=== PATIENT | female | born 1985 | race Caucasian/White ===

== ENCOUNTER 2016-09-03 16:13 | Emergency (ER) | payer SELFPAY ==
[~2016-09-03] VITALS: Ht 152.4 cm; Wt 95.1 kg
[~2016-09-03 16:13] MED LIST: HYDR-1530 PO; IBUP-238 PO; LORT5TAB PO; MACR100C PO; ONDA4TAB7 OR; PHEN12.5 PO; PYRI200T4 PO; SULF-154 PO; Z.0.NO CURRENT MEDS
[2016-09-03 16:15] VITALS: BP 130/66; PULSE 88; RESP 18; TEMP 98.9; O2SAT 99
--- NOTE | 2016-09-03 17:27 | PD ---
HPI Chief Complaint: Cold / Flu Symptoms Time Seen by Provider: 17:23 Travel History International Travel<30 days: No Contact w/Intl Traveler<30days: No Traveled to known affect area: No History of Present Illness HPI 30 year-old female presents to the emergency room for evaluation of nonproductive cough, congestion, chills, and sore throat for the past 2.5 days. Tmax at home has been 99. States where she works everyone is sick. She has been taking DayQuil and NyQuil without significant relief in symptoms. She did not get a flu shot this year. Denies chronic medical conditions or to the medications. PFSH Past Medical History Diminished Hearing: No Kidney Stones: Yes Immunizations Current: No Tetanus Vaccination: < 5 Years Influenza Vaccination: Yes (egg free version) ?: Not LMP: 09/01/16 : 1 Para: 0 : 0 Ectopic : Yes Past Surgical History Other Surgery: Yes (HX ECTOPIC PREGNACY 2010) Social History Alcohol Use: No Tobacco Use: Yes (08/22 PPD) Substance Use: No Allergies-Medications (Allergen,Severity, Reaction): Coded Allergies: Egg Allergy (Verified Allergy, Unknown, 09/03/16) Reported Meds & Prescriptions Reported Meds & Active Scripts Active Review of Systems Except as stated in HPI: all other systems reviewed are Neg Physical Exam Narrative GENERAL: Well-nourished, well-developed female in no acute distress. Afebrile. Ambulatory. SKIN: Warm and dry. HEAD: Normocephalic. EYES: No scleral icterus. No injection or drainage. ENT: Mucosa pink and moist. Moderate erythema without exudates. No uvular edema. No uvular, palatal, or tonsillar deviation. Airway patent. Nasal turbinates appear normal without nasal blood, purulent drainage or septal hematoma. EARS: Bilateral pinnae and external canals appear within normal limits. Bilateral tympanic membranes without erythema, dullness or perforation. NECK: Supple, trachea midline. No JVD or lymphadenopathy. CARDIOVASCULAR: Regular rate and rhythm without murmurs, gallops, or rubs. RESPIRATORY: Breath sounds equal bilaterally. No accessory muscle use. No crackles, rales, wheezes, or rhonchi. Data Data Last Documented VS Vital Signs Date Time Temp Pulse Resp B/P Pulse Ox O2 Delivery O2 Flow Rate FiO2 09/03/16 16:15 98.9 88 18 130/[address] [facility] Medical Decision Making Medical Screen Exam Complete: Yes Emergency Medical Condition: Yes Medical Record Reviewed: Yes Differential Diagnosis URI versus bronchitis versus pneumonia unlikely Narrative Course 30-year-old female presents to the emergency room for evaluation of cold and flu symptoms for the past 2.5 days. Vital signs stable. Resting comfortably in bed. Coughing occasionally. Physical exam is reassuring. Mildly erythematous pharynx without exudates or edema. No evidence of bacterial infection in the nose or ears. Lungs sounds clear and equal bilaterally. This is viral upper respiratory infection. Patient told to follow up with the primary care physician and return for worsening symptoms. She understands and agrees to plan. Diagnosis Primary Impression: Upper respiratory infection Qualified Code: J00 - Acute nasopharyngitis Referrals: Primary Care Physician Patient Instructions: General Instructions, Upper Respiratory Infection (ED) Departure Forms: Tests/Procedures, Work Release Enter return to work date: Sep 05, 2016 Additional Instructions: Rest and drink plenty of fluids. Continue [id number] cough and cold medications. Follow-up with a primary care physician. Return to the emergency room for worsening symptoms. Med/Other Pt SpecificInfo: Prescription(s) given Disposition: 01 DISCHARGE HOME Condition: Stable Emelyn Boudreaux Sep 03, 2016 17:26
== END 2016-09-03 17:39 | disposition home or self-care (01) ==
LOC: PHEFT 16:13
DX: J06.9 Acute upper respiratory infection, unspecified (principal); F17.210 Nicotine dependence, cigarettes, uncomplicated
CPT/HCPCS: 99283

== ENCOUNTER 2016-10-20 21:03 | Emergency (ER) | payer SELFPAY ==
[~2016-10-20] VITALS: Ht 165.1 cm; Wt 98.7 kg
--- NOTE | 2016-10-20 21:44 | PD ---
HPI Chief Complaint: chest pain Time Seen by Provider: 21:32 Travel History International Travel<30 days: No Contact w/Intl Traveler<30days: No Traveled to known affect area: No History of Present Illness HPI This 30-year-old female is complaining of left-sided chest pain. This started about 2 hours ago. It's a very sharp pain located in the left upper chest. Aggravated by deep breathing and certain movements. She has been coughing. She has not had pain like this before. She was sitting in a car when it started. She does smoke cigarettes. She does not take control pills. Pain is sharp and moderate in intensity PFSH Past Medical History Diminished Hearing: No Kidney Stones: Yes Immunizations Current: No : 1 Para: 0 : 0 Ectopic : Yes Past Surgical History Other Surgery: Yes (HX ECTOPIC PREGNACY 2010) Social History Alcohol Use: No Tobacco Use: Yes (08/22 PPD) Substance Use: No Allergies-Medications (Allergen,Severity, Reaction): Coded Allergies: Egg Allergy (Verified Allergy, Unknown, 10/20/16) Reported Meds & Prescriptions Reported Meds & Active Scripts Active No Active Prescriptions or Reported Medications Review of Systems General / Constitutional: No: Fever, Chills Eyes: No: Diploplia, Blurred Vision HENT: No: Headaches Cardiovascular: Positive: Chest Pain or Discomfort Respiratory: Positive: Cough, No: Wheezing Gastrointestinal: No: Nausea, Vomiting Genitourinary: No: Urgency, Frequency Musculoskeletal: No: Myalgias, Arthralgias Skin: No Rash Hematologic/Lymphatic: No: Easy Bruising Physical Exam Narrative GENERAL: Well-developed female SKIN: Warm and dry. HEAD: Atraumatic. Normocephalic. EYES: Pupils equal and round. No scleral icterus. No injection or drainage. ENT: No nasal bleeding or discharge. Mucous membranes pink and moist. NECK: Trachea midline. No JVD. CARDIOVASCULAR: Regular rate and rhythm. No murmur appreciated. RESPIRATORY: No accessory muscle use. Clear to auscultation. Breath sounds equal bilaterally. GASTROINTESTINAL: Abdomen soft, non-tender, nondistended. Hepatic and splenic margins not palpable. MUSCULOSKELETAL: No obvious deformities. No clubbing. No cyanosis. No edema. NEUROLOGICAL: Awake and alert. No obvious cranial nerve deficits. Motor grossly within normal limits. Normal speech. PSYCHIATRIC: Appropriate mood and affect; insight and judgment normal. Data Data Last Documented VS Vital Signs Date Time Temp Pulse Resp B/P Pulse Ox O2 Delivery O2 Flow Rate FiO2 10/20/16 21:57 102 20 98 10/20/16 21:54 98.6 124/80 Orders Electrocardiogram (10/20/16 21:38) Complete Blood Count With Diff (10/20/16 21:38) Basic Metabolic Panel (Bmp) (10/20/16 21:38) Troponin I (10/20/16 21:38) D-Dimer (10/20/16 21:38) Chest, Single Ap (10/20/16 21:38) Ed Urine Pregnancytest Poc (10/20/16 21:38) Ketorolac Inj (Toradol Inj) (10/20/16 22:30) Labs Laboratory Tests Test 10/20/16 21:45 White Blood Count 18.8 TH/MM3 Red Blood Count 4.87 MIL/MM3 Hemoglobin 14.7 GM/DL Hematocrit 43.0 % Mean Corpuscular Volume 88.4 FL Mean Corpuscular Hemoglobin 30.2 PG Mean Corpuscular Hemoglobin 34.1 % Concent Red Cell Distribution Width 12.3 % Platelet Count 402 TH/MM3 Mean Platelet Volume 7.8 FL Neutrophils (%) (Auto) 49.4 % Lymphocytes (%) (Auto) 41.4 % Monocytes (%) (Auto) 7.1 % Eosinophils (%) (Auto) 1.8 % Basophils (%) (Auto) 0.3 % Neutrophils # (Auto) 9.3 TH/MM3 Lymphocytes # (Auto) 7.8 TH/MM3 Monocytes # (Auto) 1.3 TH/MM3 Eosinophils # (Auto) 0.3 TH/MM3 Basophils # (Auto) 0.1 TH/MM3 CBC Comment AUTO DIFF Differential Total Cells 100 Counted Neutrophils % (Manual) 41 % Lymphocytes % 52 % Monocytes % 3 % Eosinophils % 4 % Neutrophils # (Manual) 7.7 TH/MM3 Differential Comment FINAL DIFF MANUAL Atypical Lymphocytes % Platelet Estimate HIGH Platelet Morphology Comment NORMAL Red Cell Morphology Comment NORMAL D-Dimer Quantitative (PE/DVT) 0.23 MG/L FEU Sodium Level 140 MEQ/L Potassium Level 3.5 MEQ/L Chloride Level 104 MEQ/L Carbon Dioxide Level 26.6 MEQ/L Anion Gap 9 MEQ/L Blood Urea Nitrogen 10 MG/DL Creatinine 0.68 MG/DL Estimat Glomerular Filtration 100 ML/MIN Rate Random Glucose 92 MG/DL Calcium Level 8.5 MG/DL Troponin I LESS THAN 0.02 NG/ML MDM Medical Decision Making Medical Screen Exam Complete: Yes Emergency Medical Condition: Yes Medical Record Reviewed: Yes Differential Diagnosis Differential includes costochondritis, pleurisy, pneumonia Narrative Course EKG shows normal sinus rhythm at a rate of about 95. Chest x-ray is negative. A d-dimer is negative. Impression is pleurisy like her left leg thousand symptomatic treatment will be offered Diagnosis Primary Impression: Pleurisy Scripts Hydrocodone-Acetaminophen (Lortab)7.5-325 Mg Tab1 Tab PO Q4H PRN (PAIN) #20 TAB Ref 0 Prov:Emiliano Torres MD 10/20/16 Disposition: 01 DISCHARGE HOME Condition: Stable Emiliano Torres MD Oct 20, 2016 21:44
[2016-10-20 21:54] VITALS: BP 124/80; PULSE 102; RESP 20; TEMP 98.6; O2SAT 97
[2016-10-20 21:54] LABS: AUTOMATED NEUTROPHIL # 9.3 TH/MM3 (1.8-7.7); BASOPHIL # 0.1 TH/MM3 (0-0.2); BASOPHIL % 0.3 % (0.0-2.0); EOSINOPHIL # 0.3 TH/MM3 (0-0.4); EOSINOPHIL % 1.8 % (0.0-4.0); LYMPH % 41.4 % (9.0-44.0); LYMPHOCYTE # 7.8 TH/MM3 (1.0-4.8); MEAN CELL VOLUME 88.4 FL (80.0-100.0); MEAN CORPUSCULAR HEMOGLOBIN 30.2 PG (27.0-34.0); MEAN CORPUSCULAR HGB CONC 34.1 % (32.0-36.0); MONO % 7.1 % (0.0-8.0); NEUT % 49.4 % (16.0-70.0); PLATELET COUNT 402 TH/MM3 (150-450); RED BLOOD COUNT 4.87 MIL/MM3 (4.00-5.30); RED CELL DISTRIBUTION WIDTH 12.3 % (11.6-17.2); WHITE BLOOD COUNT 18.8 TH/MM3 (4.0-11.0)
[2016-10-20 22:01] LABS: CHLORIDE 104 MEQ/L (98-107); POTASSIUM 3.5 MEQ/L (3.5-5.1); SODIUM (NA) 140 MEQ/L (136-145)
[2016-10-20 22:04] LABS: ANION GAP 9 MEQ/L (5-15); BICARBONATE 26.6 MEQ/L (21.0-32.0); BLOOD UREA NITROGEN 10 MG/DL (7-18)
[2016-10-20 22:07] LABS: GLOMERULAR FILTRATION RATE 100 ML/MIN (>89)
[2016-10-20 22:08] LABS: HEMO FLAGS AUTO DIFF
[2016-10-20 22:10] VITALS: BP 142/74; PULSE 98; RESP 20; O2SAT 98
[2016-10-20 22:16] VITALS: BP 119/62; PULSE 96; RESP 20; O2SAT 98
[2016-10-20] MEDS ORDERED: KETOROLAC TROMETHAMINE 30 MG/ML (IVP) VIAL IV PUSH ONE (22:30)
[2016-10-20 22:34] LABS: EOSINOPHILS 4 % (0-4); NEUTROPHIL # MANUAL DIFF 7.7 TH/MM3 (1.8-7.7); POLYS (SEG NEUTROPHILS) 41 % (16-70); WBC DIFF SAMPLE 100
[2016-10-20 22:35] LABS: PLATELET ESTIMATE SMEAR HIGH (NORMAL); PLATELET MORPHOLOGY NORMAL (NORMAL); SCAN/DIFF FINAL DIFF MANUAL
--- NOTE | 2016-10-20 22:44 | RADHPO ---
EXAM DATE/TIME: 10/20/2016 22:31 [facility] COMPARISON: No previous studies available for comparison. INDICATIONS : Chest pains with shortness of breath. MEDICAL HISTORY : None. SURGICAL HISTORY : None. ENCOUNTER: Initial ACUITY: 1 day PAIN SCORE: 8/10 LOCATION: Left chest FINDINGS: The lungs are clear without infiltrate, nodule, or mass. There is no appreciable pleural effusion fo r technique. Heart and mediastinum are unremarkable. CONCLUSION: No acute cardiopulmonary disease. Kumar Porter MD on October 20, 2016 at 22:42 Board Certified Radiologist. This report was verified electronically.
[2016-10-20] MEDS ORDERED: HYDR-3534 PO (23:14)
[2016-10-20] MEDS ORDERED: ACETAMINOPHEN/HYDROcodone 325 MG/5 MG TAB PO ONE (23:15)
[2016-10-20 23:28] VITALS: BP 121/59; PULSE 77; RESP 20; O2SAT 99
[2016-10-20 23:31] VITALS: BP 121/59
[2016-10-21 00:30] VITALS: RESP 20
--- NOTE | 2016-10-21 23:16 | EKG ---
Date Performed: 10/20/2016 Time Performed: 21:27:10 PTAGE: 30 years EKG: Sinus rhythm Normal ECG NO PREVIOUS TRACING DOCTOR: Nicolas Fair Interpretating Date/Time 10/21/2016 23:13:41
== END 2016-10-21 00:31 | disposition home or self-care (01) ==
LOC: PHED 21:03
DX: R09.1 Pleurisy (principal); F17.210 Nicotine dependence, cigarettes, uncomplicated
CPT/HCPCS: 71010; 80048; 84484; 84703; 85007; 85027; 85379; 93005; 96374; 99284; J1885

== ENCOUNTER 2016-12-01 00:34 | Emergency (ER) | payer SELFPAY ==
[~2016-12-01] VITALS: Ht 165.1 cm; Wt 96.5 kg
[~2016-12-01 00:34] MED LIST changes: -HYDR-1530 PO; +HYDR-3534 PO; -IBUP-238 PO; -LORT5TAB PO; -MACR100C PO; -ONDA4TAB7 OR; -PHEN12.5 PO; -PYRI200T4 PO; -SULF-154 PO; -Z.0.NO CURRENT MEDS
[2016-12-01 00:41] VITALS: BP 138/77; PULSE 87; RESP 18; TEMP 98.3; O2SAT 98
== END 2016-12-01 01:21 | disposition left against medical advice (07) ==
LOC: PHED 00:34
DX: Z53.29 Procedure and treatment not carried out because of patient's decision for other reasons (principal)
CPT/HCPCS: 99281

== ENCOUNTER 2018-02-12 23:37 | Emergency (ER) | payer SELFPAY ==
[~2018-02-12] VITALS: Ht 165.1 cm; Wt 81.2 kg
[2018-02-12 23:41] VITALS: BP 119/59; PULSE 89; RESP 16; TEMP 98.1; O2SAT 99
[2018-02-12 23:55] LABS: BILIRUBIN, URINE NEG (NEG); BLOOD, URINE MOD (NEG); GLUCOSE,URINE NEG (NEG); KETONE, URINE NEG (NEG); NITRITE,URINE NEG (NEG); URINE COLOR YELLOW (YELLW/STRAW); URINE LEUKOCYTE ESTERASE TRACE (NEG)
--- NOTE | 2018-02-12 23:59 | PD ---
HPI Chief Complaint: Complaint Time Seen by Provider: 23:46 Travel History International Travel<30 days: No Contact w/Intl Traveler<30days: No Traveled to known affect area: No History of Present Illness HPI 32-year-old female complains of dysuria frequency and left low back pain. Patient states that she started having dysuria and frequency since last night. Patient started having left low back pain tonight. Patient denies any fever chills. Patient denies any nausea vomiting diarrhea. Patient denies any vaginal discharge or bleeding. Patient has history of kidney stone in the past. PFSH Past Medical History Diminished Hearing: No Kidney Stones: Yes Immunizations Current: No : 1 Para: 0 : 0 Ectopic : Yes Past Surgical History Other Surgery: Yes (HX ECTOPIC PREGNACY 2010) Social History Alcohol Use: No Tobacco Use: Yes (08/22 PPD) Substance Use: Yes (MARIJUANA) Allergies-Medications (Allergen,Severity, Reaction): Coded Allergies: egg (Unverified Allergy, Unknown, 02/12/18) Reported Meds & Prescriptions Reported Meds & Active Scripts Active Bactrim DS (Sulfamethoxazole-Trimethoprim) 800-160 Mg Tab 1 Tab PO BID Review of Systems General / Constitutional: No: Fever Eyes: No: Visual changes HENT: No: Headaches Cardiovascular: No: Chest Pain or Discomfort Respiratory: No: Shortness of Breath Gastrointestinal: No: Abdominal Pain Genitourinary: Positive: Frequency, Dysuria Musculoskeletal: No: Pain Skin: No Rash Neurologic: No: Weakness Psychiatric: No: Depression Endocrine: No: Polydipsia Hematologic/Lymphatic: No: Easy Bruising Physical Exam Narrative GENERAL: Well-nourished, well-developed patient. SKIN: Focused skin assessment warm/dry. HEAD: Normocephalic. EYES: No scleral icterus. No injection or drainage. NECK: Supple, trachea midline. No JVD or lymphadenopathy. CARDIOVASCULAR: Regular rate and rhythm without murmurs, gallops, or rubs. RESPIRATORY: Breath sounds equal bilaterally. No accessory muscle use. GASTROINTESTINAL: Abdomen soft, non-tender, nondistended. MUSCULOSKELETAL: No cyanosis, or edema. BACK: Patient has mild tenderness in palpation left low back area, without obvious deformity. No CVA tenderness. Data Data Last Documented VS Vital Signs Date Time Temp Pulse Resp B/P (MAP) Pulse Ox O2 Delivery O2 Flow Rate FiO2 02/12/18 23:41 98.1 89 16 119/59 (79) 99 Orders Orders Urinalysis - C+S If Indicated (02/12/18 23:47) Sulfamet-Trimeth Ds 800-160 Mg (Bactrim (02/13/18 00:00) Phenazopyridine (Pyridium) (02/13/18 00:15) Urine Culture (02/12/18 23:50) Electrocardiogram (02/13/18 00:13) Labs Laboratory Tests Test 02/12/18 23:50 Urine Color YELLOW Urine Turbidity CLOUDY Urine pH 6.0 Urine Specific [place] 1.025 Urine Protein 30 mg/dL Urine Glucose (UA) NEG mg/dL Urine Ketones NEG mg/dL Urine Occult Blood MOD Urine Nitrite NEG Urine Bilirubin NEG Urine Urobilinogen 0.2 MG/DL Urine Leukocyte Esterase TRACE Urine RBC 50-99 /hpf Urine WBC 25-49 /hpf Urine Squamous Epithelial Cells 6-8 /hpf Urine Bacteria FEW /hpf Microscopic Urinalysis Comment CULTURE INDICATED MDM Medical Decision Making Medical Screen Exam Complete: Yes Emergency Medical Condition: Yes Differential Diagnosis Differential diagnosis including urethritis, UTI, pyelonephritis, nephrolithiasis. Narrative Course 32-year-old female with dysuria, frequency, left low back pain. Bactrim DS 1 tablet p.o. given. Pyridium 200 mg p.o. given. Diagnosis Primary Impression: UTI (urinary tract infection) Qualified Codes: N30.00 - Acute cystitis without hematuria Patient Instructions: General Instructions Additional Instructions: Bactrim DS as directed. Cranberry juice as directed. Encourage p.o. fluid. Follow-up with personal physician. Return if worse. Med/Other Pt SpecificInfo: Prescription(s) given Scripts Sulfamethoxazole-Trimethoprim (Bactrim DS) 800-160 Mg Tab 1 TAB PO BID for Infection, #14 TAB 0 Refills Prov: Abelardo Loya MD 02/13/18 Disposition: 01 DISCHARGE HOME Condition: Stable Abelardo Loya MD Feb 12, 2018 23:59
[2018-02-13] MEDS ORDERED: SULFAMETHOXAZOLE-TRIMETHOPRIM DS 800-160 MG TAB PO ONE
[2018-02-13 00:02] LABS: BACTERIA, URINE FEW /hpf
[2018-02-13] MEDS ORDERED: BACT800T5 PO (00:07)
[2018-02-13] MEDS ORDERED: PHENAZOPYRIDINE HCL 200 MG TAB PO ONE (00:15)
== END 2018-02-13 00:36 | disposition home or self-care (01) ==
LOC: PHED 23:37
DX: N39.0 Urinary tract infection, site not specified (principal); B95.7 Other staphylococcus as the cause of diseases classified elsewhere; M54.5 Low back pain; R35.0 Frequency of micturition; Z87.442 Personal history of urinary calculi; F17.210 Nicotine dependence, cigarettes, uncomplicated; F12.90 Cannabis use, unspecified, uncomplicated
CPT/HCPCS: 81001; 86403; 87077; 87086; 87186; 99283